=== PATIENT | female | born 1950 ===

== ENCOUNTER 2017-12-09 07:46 | Day surgery (SDC) | payer OTHER ==
[2017-12-09] MEDS ORDERED: Lactated Ringer's 500 ML IV ONE (08:55)
[2017-12-09] MEDS ORDERED: Propofol 10 mg/ml Inj (20 ML) ONE (10:00)
[2017-12-09 10:29] VITALS: TEMP 97
[2017-12-09 10:35] VITALS: BP 115/68; PULSE 79; RESP 20; O2SAT 99
== END 2017-12-09 11:33 | disposition home or self-care (01) ==
LOC: H.ENDO 07:46
PROVIDERS: ATTEND Internal Medicine Gastroenterology
DX: Z86.010 Personal history of colon polyps (principal); E78.5 Hyperlipidemia, unspecified; I10 Essential (primary) hypertension; K64.8 Other hemorrhoids; K57.30 Diverticulosis of large intestine without perforation or abscess without bleeding
CPT/HCPCS: G0105; J2001; J2704; J7120

== ENCOUNTER 2018-03-01 10:17 | Emergency (ER) | payer OTHER ==
[2018-03-01 10:33] VITALS: BMI 27.2
[2018-03-01] MEDS ORDERED: Dexamethasone 10 MG in Sodium Chloride 0.9% 50 ML IV ONE (11:06)
[2018-03-01] MEDS ORDERED: Morphine 4 MG/ML VIAL IVP ONE (11:06)
[2018-03-01] MEDS ORDERED: Morphine 4 MG/ML VIAL ONE (11:23)
[2018-03-01 11:27] LABS: BASO % 0.6 % (0.0-2.0); EOS # 0.1 K/uL (0.0-0.7); EOS % 1.7 % (0.0-4.0); HEMOGLOBIN 15.2 g/dL (12.0-18.0); LYMPH # 1.3 K/uL (1.0-4.3); LYMPH % 27.1 % (20.0-40.0); MEAN CELL VOLUME 94.1 fl (80.0-94.0); MEAN CORPUSCULAR HEMOGLOBIN 32.8 pg (27.0-31.0); MEAN CORPUSCULAR HGB CONC 34.8 g/dL (33.0-37.0); MEAN PLATELET VOLUME 7.7 fl (7.2-11.7); MONO # 0.5 K/uL (0.0-0.8); MONO % 9.9 % (0.0-10.0); NEUT # 2.8 K/uL (1.8-7.0); NEUT % 60.7 % (50.0-75.0); NRBC % 0.1 % (0.0-0.0); RBC 4.63 Mil/uL (4.40-5.90); RED CELL DISTRIBUTION WIDTH 13.6 % (11.5-14.5); WHITE BLOOD COUNT 4.6 K/uL (4.8-10.8)
[2018-03-01 11:41] LABS: BLOOD UREA NITROGEN 13 mg/dl (9-20); CALCIUM 9.7 mg/dL (8.4-10.2); GFR NON-AFRICAN AMERICAN > 60
--- NOTE | 2018-03-01 12:07 | ED PDOC ---
HPI: Back Time Seen by Provider: 03/01/18 10:44 Chief Complaint (Nursing): Back Pain Chief Complaint (Provider): Back Pain History Per: Patient History/Exam Limitations: no limitations Onset/Duration Of Symptoms: Days Current Symptoms Are (Timing): Still Present Quality Of Discomfort: "Pain" Previous Symptoms: Back Pain, Chronic Pain, Prior Surgery Additional Complaint(s): 67 y/o male with a PMHx of chronic back pain, arthritis and HTN presents to the ED complaining of constant left-sided lower back pain that radiates down to the left leg, onset three days ago. Patient reports pain is gradually getting worse and worsens with movement, bending and walking. Patient states severe pain is making it very difficult for him to walk. Patient reports of taking Advil with mild relief over the past three days. In addition, patient reports of similar pain for many years in the past due to injuries to his back. Patient reports of having a lumbar back surgery performed by Dr. Saleh (from [facility]) in the past for his injuries and lumbar back pain. However, patient states he has not seen or been in contact with Dr. Saleh for many years. Additionally, patient reports of numbness to the left leg and intermittent urinary incontinence ongoing for a very long time. Denies recent injury, fever, weakness, pain management and other complaints at this time. PMD: [facility] Past Medical History Reviewed: Historical Data, Nursing Documentation, Vital Signs Vital Signs: Last Vital Signs Temp 98.8 F 03/01/18 10:43 Pulse 83 03/01/18 10:43 Resp 20 03/01/18 10:43 BP 137/84 03/01/18 10:43 Pulse Ox 97 03/01/18 10:43 - Medical History PMH: Arthritis, HTN, Hypercholesterolemia, Kidney Stones, Chronic Pain (back pain) Denies: Depression, Chronic Kidney Disease - Surgical History Surgical History: Back Surgery, Endoscopy Denies: Pacemaker Other surgeries: Knee Surgery - Family History Family History: States: Unknown Family Hx - Home Medications Home Medications: Ambulatory Orders Medication Instructions Recorded Telmisartan [Micardis] 1 tab PO DAILY 05/20/16 oxyCODONE/Acetaminophen [Percocet 1 tab PO Q6H PRN #5 tab 04/07/17 5/325 mg Tab] Amlodipine/Valsartan/Hcthiazid 1 each PO DAILY 12/09/17 [Exforge Hct 5-160-12.5 mg Tab] Methylprednisolone [Medrol Dose 4 mg PO ASDIR #21 mg 03/01/18 Pack (21 tabs)] traMADol [Ultram] 50 mg PO TID PRN #15 tab 03/01/18 - Allergies Allergies/Adverse Reactions: Allergies Allergy/AdvReac Type Severity Reaction Status Date / Time Penicillins Allergy RASH Verified 12/09/17 09:04 Review of Systems ROS Statement: Except As Marked, All Systems Reviewed And Found Negative Constitutional: Negative for: Fever Genitourinary Male: Positive for: Incontinence Musculoskeletal: Positive for: Back Pain (left sided), Leg Pain (left leg) Neurological: Positive for: Numbness (left leg). Negative for: Weakness Physical Exam - Reviewed Nursing Documentation Reviewed: Yes Vital Signs Reviewed: Yes - Physical Exam Appears: Positive for: Non-toxic, No Acute Distress Head Exam: Positive for: ATRAUMATIC, NORMOCEPHALIC Skin: Positive for: Normal Color, Warm, Dry Eye Exam: Positive for: Normal appearance, EOMI, PERRL Neck: Positive for: Normal, Painless ROM Cardiovascular/Chest: Positive for: Regular Rate, Rhythm. Negative for: Murmur Respiratory: Positive for: Normal Breath Sounds. Negative for: Respiratory Distress Gastrointestinal/Abdominal: Positive for: Normal Exam, Soft. Negative for: Tenderness Back: Positive for: Normal Inspection, Other (Left paraspinal tenderness with a positive straight leg raise) Extremity: Positive for: Normal ROM. Negative for: Deformity Neurologic/Psych: Positive for: Alert, Oriented, Gait (Steady but antalgic). Negative for: Motor/Sensory Deficits - Laboratory Results Result Diagrams: 03/01/18 11:22 03/01/18 11:22 - ECG O2 Sat by Pulse Oximetry: 97 (RA) Pulse Ox Interpretation: Normal - Progress Re-evaluation Time: 15:00 Condition: Re-examined, Improved Medical Decision Making Medical Decision Making: Time: 1115 Impression: Acute on chronic low back pain Differentials include but not limited to discornation, spinal stenosis with lumbar radiculopathy. Plan: -- BMP -- ED Urine Dipstick -- CBC with differentials -- Erythrocyte Sedimentation Rate -- Lumbar Spine MRI w/o Contrast -- Decadron Inj 10 mg IV -- Morphine 4 mg IVP -- MRI ordered considering patient's neurological deficits/complaints that the patient described. Time: 1342 MRI RESULTS FINDINGS: There is mild degenerative retrolisthesis of L4 on L5. There is straightening of the lumbar spine with loss of normal lumbar lordosis. Vertebral height is normal. Bone marrow signal is normal. There is no acute fracture. The conus medullaris terminates at a normal level and the nerve roots of cauda equina are normal. The paraspinous soft tissues are normal. Imaged portion of the retroperitoneum is within normal limits. T12-L1: Small left paracentral disc protrusion without spinal canal stenosis or neural foraminal narrowing. L1-2: Diffuse posterior disc bulge without spinal canal stenosis or neural foraminal narrowing. Also noted is a superimposed left foraminal and far lateral disc protrusions which abut the exiting left L1 nerve root. Mild bilateral facet arthropathy. L2-3: No disc herniation, spinal canal stenosis or neural foraminal narrowing. L3-4: Status post left laminectomy. Diffuse posterior disc bulge without central spinal canal stenosis. Moderate bilateral facet arthropathy contribute to moderate neural foraminal narrowing. L4-5: Central annular tear and right posterolateral and foraminal disc extrusion without central spinal canal stenosis. Mild bilateral facet arthropathy contribute to moderate right and mild left neural foraminal narrowing. L5-S1: Diffuse posterior disc bulge with superimposed central annular tear and broad- based central disc protrusion and mild spinal canal stenosis. No neural foraminal narrowing. OTHER FINDINGS: None. IMPRESSION: Multilevel degenerative disc disease, worse at L4-5 with central annular tear and right posterolateral and foraminal disc extrusion without central spinal canal stenosis. Also noted is moderate right and mild left neural foraminal narrowing. At L1-2 diffuse posterior disc bulge and superimposed left foraminal and far lateral disc protrusion abut the exiting left L1 nerve root. Additional comments as described above. Scribe Attestation: Documented by Sheryl English acting as a scribe for Dr. Jessi Salgado MD. Provider Scribe Attestation: All medical record entries made by the Scribe were at my direction and personally dictated by me. I have reviewed the chart and agree that the record accurately reflects my personal performance of the history, physical exam, medical decision making, and the department course for this patient. I have also personally directed, reviewed, and agree with the discharge instructions and disposition. Disposition - Clinical Impression Clinical Impression: Back pain, DJD (degenerative joint disease), lumbar, Bulging lumbar disc, Radicular pain of left lower extremity Doctor Will See Patient In The: Office Counseled Patient/Family Regarding: Studies Performed, Diagnosis, Need For Followup - Disposition Referrals: Devon Saleh MD [Staff Provider] - Disposition: Routine/Home Disposition Time: 15:00 Condition: GOOD Additional Instructions: DESHAWN BURT, thank you for letting us take care of you today. Your provider was Jessi Salgado MD and you were treated for BACK PAIN. The emergency medical care you received today was directed at your acute symptoms. If you were prescribed any medication, please fill it and take as directed. It may take several days for your symptoms to resolve. Return to the Emergency Department if your symptoms worsen, do not improve, or if you have any other problems. Please contact your doctor or call one of the physicians/clinics you have been referred to that are listed on the Patient Visit Information form that is included in your discharge packet. Bring any paperwork you were given at discharge with you along with any medications you are taking to your follow up visit. Our treatment cannot replace ongoing medical care by a primary care provider outside of the emergency department. Thank you for allowing the [facility] team to be part of your care today. If you had an X-Ray or CT scan: A Radiologist will review the ED reading if any change in treatment is needed we will contact you. If you had a blood, urine, or wound culture: It will take several days for the results, if any change in treatment is needed we will contact you. If you had an STI test: It will take 48 hours for the results. Please call after 1 week if you have not heard back. Prescriptions: Methylprednisolone [Medrol Dose Pack (21 tabs)] 4 mg PO ASDIR #21 mg traMADol [Ultram] 50 mg PO TID PRN #15 tab PRN Reason: Pain, Severe (8-10) Instructions: Herniated Disc, Radiculopathy (DC)
--- NOTE | 2018-03-01 13:44 | MRI ---
Date of service: 03/01/2018 PROCEDURE: MR LUMBAR SPINE WITHOUT CONTRAST HISTORY: back pain L leg paresthesia h/o back surgery COMPARISON: None available. TECHNIQUE: Multiecho multiplanar sequences were performed through the lumbar spine without the use of intravenous contrast. FINDINGS: There is mild degenerative retrolisthesis of L4 on L5. There is straightening of the lumbar spine with loss of normal lumbar lordosis. Vertebral height is normal. Bone marrow signal is normal. There is no acute fracture. The conus medullaris terminates at a normal level and the nerve roots of cauda equina are normal. The paraspinous soft tissues are normal. Imaged portion of the retroperitoneum is within normal limits. T12-L1: Small left paracentral disc protrusion without spinal canal stenosis or neural foraminal narrowing. L1-2: Diffuse posterior disc bulge without spinal canal stenosis or neural foraminal narrowing. Also noted is a superimposed left foraminal and far lateral disc protrusions which abut the exiting left L1 nerve root. Mild bilateral facet arthropathy. L2-3: No disc herniation, spinal canal stenosis or neural foraminal narrowing. L3-4: Status post left laminectomy. Diffuse posterior disc bulge without central spinal canal stenosis. Moderate bilateral facet arthropathy contribute to moderate neural foraminal narrowing. L4-5: Central annular tear and right posterolateral and foraminal disc extrusion without central spinal canal stenosis. Mild bilateral facet arthropathy contribute to moderate right and mild left neural foraminal narrowing. L5-S1: Diffuse posterior disc bulge with superimposed central annular tear and broad-based central disc protrusion and mild spinal canal stenosis. No neural foraminal narrowing. OTHER FINDINGS: None. IMPRESSION: Multilevel degenerative disc disease, worse at L4-5 with central annular tear and right posterolateral and foraminal disc extrusion without central spinal canal stenosis. Also noted is moderate right and mild left neural foraminal narrowing. At L1-2 diffuse posterior disc bulge and superimposed left foraminal and far lateral disc protrusion abut the exiting left L1 nerve root. Additional comments as described above.
[2018-03-01 15:36] VITALS: BP 130/70; PULSE 76; RESP 19; TEMP 97; O2SAT 98
== END 2018-03-01 16:00 | disposition home or self-care (01) ==
LOC: H.ER 10:17
DX: M54.5 Low back pain (principal); M47.9 Spondylosis, unspecified; M51.26 Other intervertebral disc displacement, lumbar region; G89.29 Other chronic pain; I10 Essential (primary) hypertension; M51.16 Intervertebral disc disorders with radiculopathy, lumbar region; Z87.442 Personal history of urinary calculi; Z88.0 Allergy status to penicillin; E78.00 Pure hypercholesterolemia, unspecified
CPT/HCPCS: 72148; 80048; 85025; 85651; 96374; 99282; J1100; J2270

== ENCOUNTER 2018-04-02 12:50 | Emergency (ER) | payer OTHER, MEDICARE ==
[2018-04-02 12:50] VITALS: BMI 27.2
--- NOTE | 2018-04-02 13:32 | ED PDOC ---
Lower Extremity Pain/Injury Time Seen by Provider: 04/02/18 13:07 Chief Complaint (Nursing): Back Pain Chief Complaint (Provider): Back Pain History Per: Patient History/Exam Limitations: no limitations Onset/Duration Of Symptoms: Days (x3) Current Symptoms Are (Timing): Still Present Additional Complaint(s): Chase Becerra is a 67 year old male with a past medical history of hypertension and chronic back pain who is presenting to the ED for evaluation of acute on chronic back pain radiating down the left leg, onset 3 days ago. Patient reports that he has had chronic back pain since his lumbar fusion surgery 12 years ago and states that he manages his pain with Tramadol. He adds that he took half a tablet of Tramadol this morning without any relief in pain. Patient reports that he was seen here three days ago for a near syncopal episode after taking Tramadol but was discharged after an unremarkable work up. Otherwise: (-) falls, (-) trauma, (-) fever, (-) saddle anesthesia, (-) chest pain, (-) shortness of breath, (-) nausea, (-) vomiting, (-) diarrhea (-) abdominal pain (-) urinary symptoms (-) weakness/numbness. PMD: [facility] Past Medical History Reviewed: Historical Data, Nursing Documentation, Vital Signs Vital Signs: Last Vital Signs Temp 97.9 F 04/02/18 12:58 Pulse 76 04/02/18 12:58 Resp 20 04/02/18 12:58 BP 160/87 H 04/02/18 12:58 Pulse Ox 100 04/02/18 12:58 - Medical History PMH: Arthritis, HTN, Hypercholesterolemia, Kidney Stones, Chronic Pain (back pain) - Surgical History Surgical History: Back Surgery (lumbar fusion), Endoscopy Other surgeries: right knee surgery - Family History Family History: States: Unknown Family Hx - Social History Current smoker - smoking cessation education provided: No Alcohol: Social Drugs: Denies - Home Medications Home Medications: Ambulatory Orders Medication Instructions Recorded Telmisartan [Micardis] 1 tab PO DAILY 05/20/16 oxyCODONE/Acetaminophen [Percocet 1 tab PO Q6H PRN #5 tab 04/07/17 5/325 mg Tab] Amlodipine/Valsartan/Hcthiazid 1 each PO DAILY 12/09/17 [Exforge Hct 5-160-12.5 mg Tab] Methylprednisolone [Medrol Dose 4 mg PO ASDIR #21 mg 03/01/18 Pack (21 tabs)] traMADol [Ultram] 50 mg PO TID PRN #15 tab 03/01/18 Acetaminophen [Acetaminophen 8 650 mg PO Q8 PRN #21 tablet.er 04/02/18 Hour] Meloxicam [Mobic] 15 mg PO DAILY PRN #14 tab 04/02/18 - Allergies Allergies/Adverse Reactions: Allergies Allergy/AdvReac Type Severity Reaction Status Date / Time Penicillins Allergy RASH Verified 04/02/18 12:57 Review of Systems ROS Statement: Except As Marked, All Systems Reviewed And Found Negative Constitutional: Negative for: Fever Cardiovascular: Negative for: Chest Pain Respiratory: Negative for: Shortness of Breath Gastrointestinal: Negative for: Nausea, Vomiting, Abdominal Pain, Diarrhea Musculoskeletal: Positive for: Back Pain, Leg Pain Physical Exam - Reviewed Nursing Documentation Reviewed: Yes Vital Signs Reviewed: Yes - Physical Exam Comments: GENERAL APPEARANCE: Patient is awake, alert, oriented x 3, in no acute distress ; appears uncomfortable uncomfortable. Cane at bedside. SKIN: Warm, dry; (-) cyanosis. EYES: (-) conjunctival pallor. ENMT: Mucous membranes moist. Airway patent, (-) stridor. NECK: Supple, FROM (-) tenderness, (-) stiffness, (-) lymphadenopathy. CHEST AND RESPIRATORY: (-) rales, (-) rhonchi, (-) wheezes; breath sounds equal bilaterally. Respirations even and nonlabored. HEART AND CARDIOVASCULAR: (-) irregularity ABDOMEN AND GI: Soft; (-) tenderness (-) guarding (-) distention; (-) palpable mass (-) CVA tenderness. BACK: (+) left paralumbar and left sciatic notch tenderness. Straight leg raising (-) right, (+) left side at 10 degrees. (+) healed 4 cm vertically oriented surgical incision to midline lumbar spine, with mild midline tenderness. EXTREMITIES: (-) deformity. Distal pulses good bilaterally. NEURO AND PSYCH: Mental status as above. Intact sensation bilaterally; normal strength in extension of the knees, plantar and dorsiflexion of the toes. Speech: clear. (-) facial asymmetry (-) aphasia - ECG O2 Sat by Pulse Oximetry: 100 (RA) Pulse Ox Interpretation: Normal Medical Decision Making Medical Decision Making: Time: 13:10 Impression: acute on chronic back pain, probable sciatica Plan: --Toradol 30 mg IM --Valium 5 mg PO ( Not driving home) --Zofran 4 mg PO 1435 Patient reports persistent pain. 1 tab Percocet ordered. 1520 Patient sleeping comfortably in ED stretcher. No distress noted. 1540 Patient reports minimal improvement of symptoms. Lumbar CT ordered. [address] 1720 Patient resting comfortably in ED stretcher. Pending CT read. 1735 EXAM: CT Lumbar Spine Without Intravenous Contrast EXAM DATE/TIME: 04/02/2018 3:41 PM CLINICAL HISTORY: 67 years old, male; Pain; Low back pain; Prior surgery; Surgery date: 6+ months ; Surgery type: Lumbar fusion 12 yrs ago; Patient HX: Chronic back pain; Additional info: Intractable pain. Pain radiating down left leg x 3 days TECHNIQUE: Axial computed tomography images of the lumbar spine without intravenous contrast. All CT scans at this facility use at least one of these dose optimization techniques: automated exposure control; mA and/or kV adjustment per patient size (includes targeted exams where dose is matched to clinical indication); or iterative reconstruction. Coronal and sagittal reformatted images were created and reviewed. COMPARISON: MR SPINAL CANAL LUMBAR W/O CONT 03/01/2018 12:34 PM FINDINGS: Vertebrae: There is no evidence of acute fracture. Discs/spinal canal/neural foramina: There is mild central spinal stenosis, secondary to disc buldge/osteophytic spurring. Mild to moderate bilateral foraminal stenosis at L3 -4 and L5 levels. No focal disc herniation is seen. Soft tissues: Unremarkable. IMPRESSION: No acute findings. Thank you for allowing us to participate in the care of your patient. Repeat BP: 127/63 Repeat HR: 67 On re-evaluation, patient reports improvement of symptoms. On exam, patient remains AAOx3, in no acute distress. Lungs clear to auscultation, cardiac RRR, repeat neuro exam shows no focal findings. Gait steady in ED with cane. Vitals stable. Lab/Diagnostic results d/w the patient in great detail. Diagnosis of acute on chronic back pain, sciatica d/w the patient. Based on history, exam and diagnostic results, plan will be for outpatient follow up with PMD/ortho. Patient instructed to follow-up with pmd / referral provided / the clinic in 1- 2 days without fail. Advised to take medication as prescribed. Return to the emergency room at any time for any new or worsening symptoms. Patient states she fully agrees with and understands discharge instructions. States that she agrees with the plan and disposition. Verbalized and repeated discharge instructions and plan. I have given the patient opportunity to ask any additional questions. Scribe Attestation: Documented by Krista Matos, acting as a scribe for Yen Adame PA-C. Provider Scribe Attestation: All medical record entries made by the Scribe were at my direction and personally dictated by me. I have reviewed the chart and agree that the record accurately reflects my personal performance of the history, physical exam, medical decision making, and the department course for this patient. I have also personally directed, reviewed, and agree with the discharge instructions and disposition. Disposition - Clinical Impression Clinical Impression: Back pain, Sciatica, Chronic pain - Patient ED Disposition Is Patient to be Admitted: No Counseled Patient/Family Regarding: Studies Performed, Diagnosis, Need For Followup, Rx Given - Disposition Referrals: Stacia Jaime MD [Staff Provider] - Disposition: Routine/Home Disposition Time: 17:37 Condition: STABLE Additional Instructions: The emergency medical care you received today was directed at your acute symptoms. If you were prescribed any medication, please fill it and take as directed. It may take several days for your symptoms to resolve. Return to the Emergency Department if your symptoms worsen, do not improve, or if you have any other problems. Please contact your doctor in 2 days for re-evaluation and follow up / or call one of the physicians/clinics you have been referred to that are listed on the Patient Visit Information form that is included in your discharge packet. Bring any paperwork you were given at discharge with you along with any medications you are taking to your follow up visit. Our treatment cannot replace ongoing medical care by a primary care provider (PCP) outside of the emergency department. Prescriptions: Acetaminophen [Acetaminophen 8 Hour] 650 mg PO Q8 PRN #21 tablet.er PRN Reason: Pain, Moderate (4-7) Meloxicam [Mobic] 15 mg PO DAILY PRN #14 tab PRN Reason: Pain, Moderate (4-7) Instructions: Sciatica, Low Back Pain in Adults, Sciatica Exercises Forms: [facility] ([place]ian) Print Language: K[place] - POA Present On Arrival: None
[2018-04-02] MEDS ORDERED: Oxycodone/Acetaminophen 5/325 mg Tab PO ONE (14:37)
[2018-04-02] MEDS ORDERED: Oxycodone/Acetaminophen 5/325 mg Tab ONE (14:44)
[2018-04-02 18:09] VITALS: BP 127/63; PULSE 67; RESP 18; TEMP 98.1
--- NOTE | 2018-04-02 18:11 | CT ---
Date of service: 04/02/2018 PROCEDURE: CT Lumbar Spine without contrast HISTORY: intractable pain COMPARISON: None available. TECHNIQUE: Axial computed tomography images were obtained of the lumbar spine without the use of intravenous contrast. Coronal and sagittal reformatted images were created and reviewed. Radiation dose: Total exam DLP = mGy-cm. This CT exam was performed using one or more of the following dose reduction techniques: Automated exposure control, adjustment of the mA and/or kV according to patient size, and/or use of iterative reconstruction technique. FINDINGS: VERTEBRAE: Unremarkable. No fracture. Normal alignment. DISCS/SPINAL CANAL/NEURAL FORAMINA: Disc bulges at L3-4 and L5-S1 with thecal sac indentation and foraminal stenosis on the right at L3-4. Status post left hemilaminotomy at L3-4. PARASPINAL SOFT TISSUES: Unremarkable. OTHER FINDINGS: None. IMPRESSION: No acute fracture.
[2018-04-02 18:55] VITALS: O2SAT 100
== END 2018-04-02 18:15 | disposition home or self-care (01) ==
LOC: H.ER 12:50
DX: M54.32 Sciatica, left side (principal); G89.29 Other chronic pain; E78.00 Pure hypercholesterolemia, unspecified; I10 Essential (primary) hypertension; Z88.0 Allergy status to penicillin
CPT/HCPCS: 72131; 96372; 99284; J1885

== ENCOUNTER 2018-04-03 13:10 | Emergency (ER) | payer OTHER, MEDICARE ==
[2018-04-03 13:11] VITALS: BMI 27.2
[2018-04-03 13:39] VITALS: O2SAT 99
--- NOTE | 2018-04-03 13:50 | ED PDOC ---
HPI: Male Pain Time Seen by Provider: 04/03/18 13:48 Chief Complaint (Nursing): Male Genitourinary Chief Complaint (Provider): DYSURIA History Per: Patient (67 Y/O MALE HERE FOR EVALUATION OF DYSURIA AND LEFT TESTICULAR PAIN NOTED SINCE LAST NIGHT. HAS ALSO HAD ONGOING LOWER BACK PAIN ASSOCITED WITH MOVEMENT. SEEN IN ED AND GIVEN TRAMADOL. DENEIS ANY FEVERS/ CHILLS/HEMATURIA.) Past Medical History Reviewed: Historical Data, Nursing Documentation, Vital Signs Vital Signs: Last Vital Signs Temp 98.2 F 04/03/18 13:36 Pulse 88 04/03/18 13:36 Resp 18 04/03/18 13:36 BP 143/80 04/03/18 13:36 Pulse Ox 99 04/03/18 13:36 - Medical History PMH: Arthritis, HTN, Hypercholesterolemia, Kidney Stones, Chronic Pain (back pain) Denies: Depression, Chronic Kidney Disease - Surgical History Surgical History: Back Surgery (lumbar fusion), Endoscopy Denies: Pacemaker - Family History Family History: States: Unknown Family Hx - Home Medications Home Medications: Ambulatory Orders Medication Instructions Recorded Telmisartan [Micardis] 1 tab PO DAILY 05/20/16 oxyCODONE/Acetaminophen [Percocet 1 tab PO Q6H PRN #5 tab 04/07/17 5/325 mg Tab] Amlodipine/Valsartan/Hcthiazid 1 each PO DAILY 12/09/17 [Exforge Hct 5-160-12.5 mg Tab] Methylprednisolone [Medrol Dose 4 mg PO ASDIR #21 mg 03/01/18 Pack (21 tabs)] traMADol [Ultram] 50 mg PO TID PRN #15 tab 03/01/18 Acetaminophen [Acetaminophen 8 650 mg PO Q8 PRN #21 tablet.er 04/02/18 Hour] Meloxicam [Mobic] 15 mg PO DAILY PRN #14 tab 04/02/18 Naproxen 375 mg PO Q8 PRN #21 tablet 04/03/18 - Allergies Allergies/Adverse Reactions: Allergies Allergy/AdvReac Type Severity Reaction Status Date / Time Penicillins Allergy RASH Verified 04/02/18 12:57 Review of Systems ROS Statement: Except As Marked, All Systems Reviewed And Found Negative Physical Exam - Reviewed Nursing Documentation Reviewed: Yes Vital Signs Reviewed: Yes - Physical Exam Appears: Positive for: Well, Non-toxic, No Acute Distress Head Exam: Positive for: ATRAUMATIC, NORMAL INSPECTION, NORMOCEPHALIC Skin: Positive for: Normal Color, Warm, DRY Eye Exam: Positive for: EOMI, Normal appearance, PERRL ENT: Positive for: Normal ENT Inspection Neck: Positive for: Normal, Painless ROM Cardiovascular/Chest: Positive for: Regular Rate, Rhythm Respiratory: Positive for: CNT, Normal Breath Sounds Gastrointestinal/Abdominal: Positive for: Normal Exam, Soft Male Genital Exam: Positive for: scrotum tenderness (L) Back: Positive for: Normal Inspection Extremity: Positive for: Normal ROM Neurologic/Psych: Positive for: Alert, Oriented - Laboratory Results Result Diagrams: 04/03/18 14:00 04/03/18 14:00 - ECG O2 Sat by Pulse Oximetry: 99 - Progress ED Course And Treament: US SCROTAL: IMPRESSION: No evidence of testicular torsion. Small bilateral hydroceles. CT ABD/PELVIS: IMPRESSION: No obstructive uropathy or evidence of recently passed genitourinary calculus. No significant interval change. TORADOL 15 MG IV X 1 DOSE PERCOCET 5/325 MG X 1 DOSE Disposition - Clinical Impression Clinical Impression: Scrotal pain, Hydrocele - Patient ED Disposition Is Patient to be Admitted: No - Disposition Referrals: Tristen Kwan Jr., MD [Staff Provider] - Disposition: Routine/Home Disposition Time: 18:56 Condition: FAIR Prescriptions: Naproxen 375 mg PO Q8 PRN #21 tablet PRN Reason: Pain, Moderate (4-7) Instructions: Hydrocele/Varicocele (DC)
[2018-04-03 14:13] LABS: BASO # 0.1 K/uL (0.0-0.2); BASO % 0.6 % (0.0-2.0); EOS % 0.3 % (0.0-4.0); HEMOGLOBIN 15.6 g/dL (12.0-18.0); LYMPH # 1.4 K/uL (1.0-4.3); LYMPH % 17.5 % (20.0-40.0); MEAN CELL VOLUME 93.5 fl (80.0-94.0); MEAN CORPUSCULAR HEMOGLOBIN 32.6 pg (27.0-31.0); MEAN CORPUSCULAR HGB CONC 34.9 g/dL (33.0-37.0); MEAN PLATELET VOLUME 8.1 fl (7.2-11.7); MONO # 0.9 K/uL (0.0-0.8); MONO % 10.8 % (0.0-10.0); NEUT # 5.6 K/uL (1.8-7.0); NEUT % 70.8 % (50.0-75.0); NRBC % 0.1 % (0.0-0.0); RBC 4.79 Mil/uL (4.40-5.90); RED CELL DISTRIBUTION WIDTH 13.4 % (11.5-14.5); WHITE BLOOD COUNT 7.9 K/uL (4.8-10.8)
[2018-04-03 14:18] LABS: URINE BILIRUBIN NEGATIVE (NEGATIVE); URINE BLOOD NEGATIVE (NEGATIVE); URINE CLARITY CLEAR (Clear); URINE COLOR STRAW (YELLOW); URINE GLUCOSE (UA) NEG (Normal); URINE LEUKOCYTE ESTERASE NEG Leu/uL (Negative); URINE PROTEIN 30 mg/dL (NEGATIVE); URINE UROBILINOGEN 0.2-1.0 mg/dL (0.2-1.0)
[2018-04-03 14:41] LABS: BLOOD UREA NITROGEN 14 mg/dl (9-20); CALCIUM 9.4 mg/dL (8.4-10.2); GFR NON-AFRICAN AMERICAN > 60
--- NOTE | 2018-04-03 15:59 | CT ---
Date of service: 04/03/2018 PROCEDURE: CT Abdomen and Pelvis without intravenous contrast HISTORY: TESTICULAR PAIN R/O KIDNEY STONE COMPARISON: CT scan of the abdomen pelvis dated 10/12/2017. TECHNIQUE: Contiguous images were obtained from the domes of the diaphragms to the upper thighs without the administration of intravenous contrast. Oral contrast was not administered. Radiation dose: Total exam DLP = 790.8 mGy-cm. This CT exam was performed using one or more of the following dose reduction techniques: Automated exposure control, adjustment of the mA and/or kV according to patient size, and/or use of iterative reconstruction technique. FINDINGS: LOWER THORAX: Unremarkable. LIVER: Diffuse hepatic steatosis. No gross lesion or ductal dilatation. GALLBLADDER AND BILE DUCTS: Unremarkable. PANCREAS: Unremarkable. No gross lesion or ductal dilatation. SPLEEN: Unremarkable. ADRENALS: Unremarkable. No mass. KIDNEYS AND URETERS: 1.6 cm right interpolar cyst. No hydronephrosis. No solid mass. VASCULATURE: Unremarkable. No aortic aneurysm. BOWEL: Colonic diverticulosis. No obstruction. No gross mural thickening. APPENDIX: Unremarkable. Normal appendix. PERITONEUM: Unremarkable. No free fluid. No free air. LYMPH NODES: Unremarkable. No enlarged lymph nodes. BLADDER: Unremarkable. REPRODUCTIVE: Prostatomegaly. BONES: No acute fracture. OTHER FINDINGS: None. IMPRESSION: No obstructive uropathy or evidence of recently passed genitourinary calculus. No significant interval change.
--- NOTE | 2018-04-03 16:51 | US ---
Date of service: 04/03/2018 HISTORY: RIGHT SCROTAL TENDERNESS TECHNIQUE: Realtime sonography through the scrotum with color and doppler flow. COMPARISON: None Available. FINDINGS: RIGHT TESTICLE: Measures 4.3 x 2.1 x 3.3 cm. Normal echotexture and flow. RIGHT EPIDIDYMIS: Epididymal head measures 0.9 x 0.6 x 0.6 cm. Grossly unremarkable appearance with normal flow. LEFT TESTICLE: Measures 4.1 x 2.4 x 3.0 cm. Normal echotexture and flow. LEFT EPIDIDYMIS: Epididymal head measures 1.2 x 0.5 x 0.7 cm. Grossly unremarkable appearance with normal flow. HYDROCELE: Small bilateral hydroceles. VARICOCELE: None. OTHER FINDINGS: None. IMPRESSION: No evidence of testicular torsion. Small bilateral hydroceles.
[2018-04-03] MEDS ORDERED: Oxycodone/Acetaminophen 5/325 mg Tab PO STA (18:52)
[2018-04-03 18:53] VITALS: BP 148/92; PULSE 82; RESP 16; TEMP 97.6
== END 2018-04-03 19:53 | disposition home or self-care (01) ==
LOC: H.ER 13:10
DX: N50.82 Scrotal pain (principal); N43.3 Hydrocele, unspecified; Z87.442 Personal history of urinary calculi; I10 Essential (primary) hypertension; G89.29 Other chronic pain; Z88.0 Allergy status to penicillin
CPT/HCPCS: 74176; 80048; 81003; 85025; 87086; 87491; 87591; 93975; 96374; 99283; J1885

== ENCOUNTER 2018-04-07 14:02 | Emergency (ER) | payer OTHER, MEDICARE ==
[2018-04-07 14:03] VITALS: BMI 27.2
[2018-04-07 14:14] VITALS: O2SAT 100
--- NOTE | 2018-04-07 14:37 | ED PDOC ---
HPI: Male Pain Time Seen by Provider: 04/07/18 14:22 Chief Complaint (Nursing): Abdominal Pain Chief Complaint (Provider): Inguinal pain History Per: Patient History/Exam Limitations: no limitations Onset/Duration Of Symptoms: Days (x 2 weeks) Current Symptoms Are (Timing): Still Present Quality Of Discomfort: "Pain" Additional Complaint(s): 67 year old male with a history of sciatica presents to the ED with left inguinal pain after he was referred here by PMD. Patient has experienced this pain for 2 weeks. He was evaluated at this ED with a CT Abd & pelvis and a testicular US and both were negative. Dr. Michael, his PMD, is requesting a surgical evaluation for possible hernia. He has normal BMs. Patient denies vomiting and dysuria. PMD: Dr. Michael Past Medical History Reviewed: Historical Data, Nursing Documentation, Vital Signs Vital Signs: Last Vital Signs Temp 98.0 F 04/07/18 14:11 Pulse 92 H 04/07/18 14:11 Resp 17 04/07/18 14:11 BP 120/72 04/07/18 14:11 Pulse Ox 100 04/07/18 14:11 - Medical History PMH: Arthritis, HTN, Hypercholesterolemia, Kidney Stones, Chronic Pain (back pain) Denies: Depression, Chronic Kidney Disease - Surgical History Surgical History: Back Surgery (lumbar fusion), Endoscopy Denies: Pacemaker - Family History Family History: States: Unknown Family Hx - Home Medications Home Medications: Ambulatory Orders Medication Instructions Recorded Telmisartan [Micardis] 1 tab PO DAILY 05/20/16 oxyCODONE/Acetaminophen [Percocet 1 tab PO Q6H PRN #5 tab 04/07/17 5/325 mg Tab] Amlodipine/Valsartan/Hcthiazid 1 each PO DAILY 12/09/17 [Exforge Hct 5-160-12.5 mg Tab] Methylprednisolone [Medrol Dose 4 mg PO ASDIR #21 mg 03/01/18 Pack (21 tabs)] traMADol [Ultram] 50 mg PO TID PRN #15 tab 03/01/18 Acetaminophen [Acetaminophen 8 650 mg PO Q8 PRN #21 tablet.er 04/02/18 Hour] Meloxicam [Mobic] 15 mg PO DAILY PRN #14 tab 04/02/18 Naproxen 375 mg PO Q8 PRN #21 tablet 04/03/18 traMADol [Ultram] 50 mg PO Q8 #10 tab 04/07/18 - Allergies Allergies/Adverse Reactions: Allergies Allergy/AdvReac Type Severity Reaction Status Date / Time Penicillins Allergy RASH Verified 04/02/18 12:57 Review of Systems ROS Statement: Except As Marked, All Systems Reviewed And Found Negative Genitourinary Male: Positive for: Other (left inguinal pain) Physical Exam - Reviewed Nursing Documentation Reviewed: Yes Vital Signs Reviewed: Yes - Physical Exam Appears: Positive for: Non-toxic, No Acute Distress Head Exam: Positive for: ATRAUMATIC, NORMAL INSPECTION, NORMOCEPHALIC Skin: Positive for: Normal Color, Warm, Dry Eye Exam: Positive for: EOMI, Normal appearance, PERRL Neck: Positive for: Normal, Painless ROM, Supple Cardiovascular/Chest: Positive for: Regular Rate, Rhythm. Negative for: Murmur Respiratory: Positive for: Normal Breath Sounds. Negative for: Respiratory Distress Gastrointestinal/Abdominal: Positive for: Normal Exam, Soft. Negative for: Tenderness Male Genital Exam: Positive for: normal genitalia, no hernia (no inguinal hernia palpated). Negative for: hernia mass, inguinal tenderness, testicular tenderness (R), testicular tenderness (L) Extremity: Positive for: Normal ROM. Negative for: Deformity Neurologic/Psych: Positive for: Alert, Oriented (x 3). Negative for: Motor/Sensory Deficits - ECG O2 Sat by Pulse Oximetry: 100 (RA) Pulse Ox Interpretation: Normal Medical Decision Making Medical Decision Makin:22 --Will obtain surgical evaluation. 14:35 --enrollment management vice president will see patient in the ED. Scribe Attestation: Documented by Noris Milian, acting as a scribe for Richard Bingham MD Provider Scribe Attestation: All medical record entries made by the Scribe were at my direction and personally dictated by me. I have reviewed the chart and agree that the record accurately reflects my personal performance of the history, physical exam, medical decision making, and the department course for this patient. I have also personally directed, reviewed, and agree with the discharge instructions and disposition. Disposition - Clinical Impression Clinical Impression: Inguinal strain - Patient ED Disposition Is Patient to be Admitted: No Counseled Patient/Family Regarding: Diagnosis, Need For Followup, Rx Given - Disposition Referrals: Luz Hidalgo MD [Staff Provider] - Disposition: Routine/Home Disposition Time: 16:06 Condition: FAIR Prescriptions: traMADol [Ultram] 50 mg PO Q8 #10 tab Instructions: Groin Strain Forms: [employer] (Kazakh)
--- NOTE | 2018-04-07 15:03 | CP.PCM.CON ---
<Oscar Bingham - Last Filed: 04/07/18 15:04> History of Present Illness - History of Present Illness History of Present Illness: General Surgery Consult for Dr. Hidalgo Reason for consult: Left groin pain 67M with PMH that includes HTN, BPH, bilateral hydroceles presents to [facility] for complaint of Left groin pain. Patient was seen and evaluated in the ED. Patient states that he was sent in today bu his Urologist to be evaluated for inguinal hernia. Patient was at [facility] ED on 04/[address] abd/pelvis and Testicular US were done at that time. Only significant finding was small bilater hydroceles. Ct scan was unremarkable with no evidence of inguinal hernia. Patient states that he has been experiencing this pain for about 2 weeks. He reports to never having this pain in the past. He rates pain as moderate. He describes it as constant and sharp located near base of penis where scrotum meets. Activity sometimes worsens pain but nothing completely alleviates it. Patient denies abdominal pain, nausea/vomting, diarrhea. he reports to passing flatus and having regular BMs. Denies fever/chills, chest pain, SOB, constipation, urinary symptoms. PMH: as above Meds: As per MAR ALL: PCN PSH: back surgery, right knee surgery, right eye surgery FH: non-contributory Social: Denies tobacco/illicit drug use, admits to 2-3 glasses of wine per day Review of Systems - Review of Systems All systems: reviewed and no additional remarkable complaints except (as per HPI) Past Patient History - Infectious Disease Hx of Infectious Diseases: None - Past Medical History & Family History Past Medical History?: Yes - Past Social History Smoking Status: Never Smoked - CARDIAC Hx Hypercholesterolemia: Yes Hx Hypertension: Yes Hx Pacemaker: No - PULMONARY Hx Respiratory Disorders: No - HEENT Hx HEENT Problems: No - RENAL Hx Chronic Kidney Disease: No Hx Kidney Stones: Yes - ENDOCRINE/METABOLIC Hx Endocrine Disorders: No - HEMATOLOGICAL/ONCOLOGICAL Hx Blood Disorders: No - INTEGUMENTARY Hx Dermatological Problems: No - MUSCULOSKELETAL/RHEUMATOLOGICAL Hx Arthritis: Yes - GASTROINTESTINAL Hx Gastrointestinal Disorders: No - GENITOURINARY/GYNECOLOGICAL Hx Genitourinary Disorders: No - PSYCHIATRIC Hx Depression: No - SURGICAL HISTORY Hx Surgeries: Yes Hx Arthroscopy: Yes (RT KNEE) Other/Comment: NASAL AND LT EYE LID SURGERY - ANESTHESIA Hx Anesthesia: Yes Hx Anesthesia Reactions: No Hx Malignant Hyperthermia: No Meds Allergies/Adverse Reactions: Allergies Allergy/AdvReac Type Severity Reaction Status Date / Time Penicillins Allergy RASH Verified 04/02/18 12:57 Physical Exam - Constitutional Appears: Well, Non-toxic, No Acute Distress - Head Exam Head Exam: ATRAUMATIC, NORMOCEPHALIC - Eye Exam Eye Exam: EOMI, Normal appearance Pupil Exam: PERRL - ENT Exam ENT Exam: Mucous Membranes Moist - Neck Exam Neck exam: Positive for: Normal Inspection - Respiratory Exam Respiratory Exam: NORMAL BREATHING PATTERN - Cardiovascular Exam Cardiovascular Exam: REGULAR RHYTHM - GI/Abdominal Exam GI & Abdominal Exam: Normal Bowel Sounds, Soft. absent: Distended, Firm, Guarding, Hernia, Rebound, Rigid, Tenderness - Exam Exam: Testicular Tenderness (left testicle) Additional comments: TTP AT LEFT TESTICLE, LEFT SPERMATIC CORD TENDER SUPERIORLY - Extremities Exam Extremities exam: Positive for: normal capillary refill, pedal pulses present. Negative for: calf tenderness Additional comments: NO EVIDENCE OF INGUINAL HERNIA ON EITHER SIDE - Back Exam Back exam: absent: CVA tenderness (L), CVA tenderness (R) - Neurological Exam Neurological exam: Alert, CN II-XII Intact, Normal Gait, Oriented x3 - Psychiatric Exam Psychiatric exam: Normal Affect, Normal Mood - Skin Skin Exam: Dry, Intact, Normal Color, Warm Results - Vital Signs Recent Vital Signs: Last Vital Signs Temp 98.0 F 04/07/18 14:11 Pulse 92 H 04/07/18 14:11 Resp 17 04/07/18 14:11 BP 120/72 04/07/18 14:11 Pulse Ox 100 04/07/18 14:41 Assessment & Plan - Assessment and Plan (Free Text) Assessment: 67 M WITH LEFT GROIN PAIN Plan: -Patient may be discharged and follow up outpatient this week with Dr. Hidalgo at his office -May take OTC tylenol or ibuprofen for pain as needed -Outpatient work up for left groin pain -Discussed with Dr. Rocky Bingham PGY2 - Date & Time Date: 04/07/18 Time: 15:00 <Luz Hidalgo - Last Filed: 04/08/18 17:38> Results - Vital Signs Recent Vital Signs: Last Vital Signs Temp 98.7 F 04/07/18 16:40 Pulse 79 04/07/18 16:40 Resp 18 04/07/18 16:40 BP 143/81 04/07/18 16:40 Pulse Ox 100 04/07/18 16:40 Assessment & Plan - Assessment and Plan (Free Text) Plan: Discussed with resident over the phone. Can follow up electively to discuss treatment of hydrocele.
[2018-04-07 16:41] VITALS: BP 143/81; PULSE 79; RESP 18; TEMP 98.7
== END 2018-04-07 17:09 | disposition home or self-care (01) ==
LOC: H.ER 14:02
DX: R10.30 Lower abdominal pain, unspecified (principal); N43.3 Hydrocele, unspecified

== ENCOUNTER 2018-06-01 00:13 | Emergency (ER) | payer OTHER ==
[2018-06-01 00:13] VITALS: BMI 26.7
[2018-06-01 00:31] VITALS: BP 148/85; PULSE 89; RESP 16; TEMP 97.5; O2SAT 95
[2018-06-01] MEDS ORDERED: Tdap Vaccine 0.5 ml Vial (10-64 yrs) IM ONE ×2 (01:10→01:31)
--- NOTE | 2018-06-01 01:12 | ED PDOC ---
HPI: Wound Care - HPI Time Seen by Provider: 06/01/18 00:39 Chief Complaint (Nursing): Abnormal Skin Integrity Chief Complaint (Provider): right ear laceration History Per: Patient, Family History Of Present Illness: 67 y/o male presents for evaluation of laceration to right ear sustained prior to arrival. Patient states he was sleeping and rolled over and landed on corner of dresser draw that was open. Patient also reports injury to right axilla. Denies head injury, LOC, dizziness, extremity numbness/weakness, hearing changes, ear discharge. Last Tetanus unknown Past Medical History Reviewed: Historical Data, Nursing Documentation, Vital Signs Vital Signs: Last Vital Signs Temp 97.5 F L 06/01/18 00:29 Pulse 89 06/01/18 00:29 Resp 16 06/01/18 00:29 BP 148/85 06/01/18 00:29 Pulse Ox 95 06/01/18 00:29 - Medical History PMH: Arthritis (spine), HTN, Hypercholesterolemia, Kidney Stones, Chronic Pain (back pain) Denies: Depression, Chronic Kidney Disease - Surgical History Surgical History: Back Surgery (lumbar fusion), Endoscopy Denies: Pacemaker - Family History Family History: States: Unknown Family Hx - Home Medications Home Medications: Ambulatory Orders Medication Instructions Recorded Telmisartan [Micardis] 1 tab PO DAILY 05/20/16 oxyCODONE/Acetaminophen [Percocet 1 tab PO Q6H PRN #5 tab 04/07/17 5/325 mg Tab] Amlodipine/Valsartan/Hcthiazid 1 each PO DAILY 12/09/17 [Exforge Hct 5-160-12.5 mg Tab] Meloxicam [Mobic] 15 mg PO DAILY PRN #14 tab 04/02/18 Naproxen 375 mg PO Q8 PRN #21 tablet 04/03/18 traMADol [Ultram] 50 mg PO Q8 #10 tab 04/07/18 Clindamycin [Cleocin] 300 mg PO TID #20 cap 06/01/18 - Allergies Allergies/Adverse Reactions: Allergies Allergy/AdvReac Type Severity Reaction Status Date / Time Penicillins Allergy RASH Verified 04/02/18 12:57 Review of Systems ROS Statement: Except As Marked, All Systems Reviewed And Found Negative ENT: Positive for: Ear Pain Physical Exam - Reviewed Nursing Documentation Reviewed: Yes Vital Signs Reviewed: Yes - Physical Exam Appears: Positive for: Well, Non-toxic, No Acute Distress Head Exam: Positive for: ATRAUMATIC, NORMAL INSPECTION, NORMOCEPHALIC Skin: Positive for: Normal Color, Rash (0.5cm superficial laceration to right ax illa; no active bleeding, FB, or surrounding tenderness noted) Eye Exam: Positive for: Normal appearance ENT: Positive for: TM Is/Are (clear bilaterally), Other (3cm laceration right antihelix through cartilage extending to inferior helix. Not through and through. No surrounding facial or scalp tenderness noted) Cardiovascular/Chest: Positive for: Regular Rate, Rhythm Respiratory: Positive for: Normal Breath Sounds Gastrointestinal/Abdominal: Positive for: Normal Exam Back: Positive for: Normal Inspection Extremity: Positive for: Normal ROM Neurologic/Psych: Positive for: Alert, Oriented (x3) - ECG O2 Sat by Pulse Oximetry: 95 - Progress ED Course And Treament: -Adacel IM -wound care Patient educated on wound care, advised suture removal 8-10 days Rx clindamycin provided (dose given in ED) Return precautions given Procedure: Wound Repair - Indications Indication(s):: Laceration - Location Location:: Right (ear) Shape:: Curvilinear, Wedge Dimensions Length cm: 3cm Dimensions width cm: 0.5cm Depth:: Epidermis - Anesthetic Technique Anesthetic Technique: Topical Local/Regional Anesthetic:: Lidocaine 1% - Debris Debris:: None - Irrigated Irrigated with ml of normal saline: 250mL - Complexity Complexity:: Simple (one layer) - Wound repair method Sutures:: # (10), Size (6'0), Type (monofilament), Technique (interrupted) [place]:: Tissue glue (right axilla laceration), Steri-strips - Muscle repiar layer closed with Muscle repair layer closed with:: Abx ointment applied, Dressing applied - Patient tolerated procedure Patient Tolerated Procedure:: Well Disposition - Clinical Impression Clinical Impression: Laceration of right ear, external, Laceration of axilla, right - Patient ED Disposition Is Patient to be Admitted: No Counseled Patient/Family Regarding: Diagnosis, Need For Followup, Rx Given - Disposition Disposition: Routine/Home Disposition Time: 03:23 Condition: IMPROVED Additional Instructions: Suture removal in 7-10 days Apply neosporin daily Take medication as directed Return to ED for worsening/concerning symptoms Prescriptions: Clindamycin [Cleocin] 300 mg PO TID #20 cap Instructions: Laceration Repair Forms: [employer] (Jordanian) Print Language: [place]ILI
[2018-06-01] MEDS ORDERED: Lidocaine 1% Inj (20ml) IJ ONE (01:25)
[2018-06-01] MEDS ORDERED: Lidocaine 1% Inj (20ml) ONE (01:31)
== END 2018-06-01 04:07 | disposition home or self-care (01) ==
LOC: H.ER 00:13
DX: S01.311A Laceration without foreign body of right ear, initial encounter (principal); S41.111A Laceration without foreign body of right upper arm, initial encounter; W06.XXXA Fall from bed, initial encounter; G89.29 Other chronic pain; I10 Essential (primary) hypertension; Z87.442 Personal history of urinary calculi; Z88.0 Allergy status to penicillin; Z23 Encounter for immunization

== ENCOUNTER 2018-06-07 09:02 | Day surgery (SDC) | payer OTHER ==
[2018-05-25 10:32] VITALS: BMI 26.7
[2018-06-07] MEDS ORDERED: Lactated Ringer's 1,000 ML IV ONE (10:10)
[2018-06-07] MEDS ORDERED: Iohexol 300 10 ML ONE (10:21)
[2018-06-07] MEDS ORDERED: Bupivacaine HCl 0.25% PF (30 ml) Inj ONE (10:21)
[2018-06-07] MEDS ORDERED: MethylPREDNISolone Depo 40 mg/ml Inj ONE (10:21)
[2018-06-07] MEDS ORDERED: Lidocaine 1% Inj (20ml) ONE (10:22)
[2018-06-07] MEDS ORDERED: Bupivacaine HCl 0.5% PF (30 ml) Inj ONE (10:22)
[2018-06-07 10:27] VITALS: RESP 18
[2018-06-07] MEDS ORDERED: Midazolam 2 MG/2 ML VIAL ONE (10:43)
[2018-06-07] MEDS ORDERED: DiphenhydrAMINE 50 mg/ml Inj ONE (10:43)
[2018-06-07] MEDS ORDERED: Iohexol 300 10 ML IJ ONE (10:45)
[2018-06-07] MEDS ORDERED: Lidocaine 1% Inj (20ml) IJ ONE (10:45)
[2018-06-07] MEDS ORDERED: MethylPREDNISolone Depo 40 mg/ml Inj IM ONE (10:45)
[2018-06-07] MEDS ORDERED: Bupivacaine 0.5% Inj(30mL) IJ ONE (10:45)
[2018-06-07] MEDS ORDERED: DiphenhydrAMINE 50 mg/ml Inj IVP PRN (11:01)
[2018-06-07 12:17] VITALS: O2SAT 99
--- NOTE | 2018-06-07 12:58 | RAD ---
Date of service: 06/07/2018 PROCEDURE: Intraoperative Fluoroscopy. HISTORY: PAIN MANAGEMENT FINDINGS: Fluoroscopic assistance was provided for pain management. Please refer to the operative report from GARRETT Garcia. Total fluoroscopic time (continuous mode) utilized during the procedure 20.0 seconds. Total exam DLP: 4.99 (mGy).
[2018-06-07 13:15] VITALS: BP 128/76; PULSE 68; TEMP 98
--- NOTE | 2018-06-07 21:33 | OP ---
PROCEDURE DATE: 06/07/2018 PREOPERATIVE DIAGNOSES: Lumbar radiculopathy and sacroiliitis. POSTOPERATIVE DIAGNOSES: Lumbar radiculopathy and sacroiliitis. PROCEDURE: Left L1-L2 transforaminal epidural steroid injection and left sacroiliac joint steroid injection. ANESTHESIOLOGIST: Pedro Norwood MD SURGEON: Gio Roman MD TYPE OF ANESTHESIA: Monitored anesthesia care. COMPLICATIONS: None. SPECIMEN: None. DESCRIPTION OF PROCEDURE: After we had a discussion of the procedure with the patient including its risks, benefits, alternatives, outcome data, possibility of no effect or increased pain, the patient consented to the procedure. He denied any recent infection, bleeding tendencies or being on anticoagulants. A decision was then made to proceed to the OR. The patient was placed on the fluoroscopy table in prone position with two pillows underneath his abdomen. The back was prepped and draped in the usual sterile fashion and sterile technique was adhered to during the entire procedure. The L1 vertebral level was first identified in the anteroposterior view. Angulation towards the left at approximately 20 degrees was used to maximize the visualization of the left L1 pedicle. The skin overlying the 6 o'clock position of the pedicle was then infiltrated with 1% lidocaine using 25-gauge needle. Subsequently, a 22-gauge 3.5-inch spinal needle was incrementally advanced under fluoroscopic guidance until the tip of the needle walked into the intervertebral foramen. After satisfactory positioning of the needle, approximately 0.5 mL of Isovue contrast was injected showing appropriate epidural nerve root spread without any signs of CSF or intervenous involvement. At this point, approximately 3 mL of 0.25% Marcaine and Depo-Medrol mixture was injected. The needle was then removed. Then, the left sacroiliac joint was visualized in the anteroposterior view. The target was at the inferior pole of the posterior opening. The skin overlying this area was then infiltrated with 1% lidocaine using 25-gauge needle. Subsequently, a 22-gauge 3.5-inch spinal needle was incrementally advanced under fluoroscopic guidance until the tip of the needle walked into the joint capsule. After satisfactory positioning of the needle, approximately 0.5 mL of Isovue contrast was injected showing appropriate spread within the joint capsule. At this point, approximately 3 mL of 0.25% Marcaine and Depo-Medrol mixture was injected. The needle was then removed and the patient's back was cleaned and dry bandages were applied. The patient was then transferred to the recovery area in good condition without any signs of HEALTHCARE MANAGEMENT toxicity or any neurological deficit. He will be following up in the office in approximately 2 to 4 weeks. En-Elier Roman MD
== END 2018-06-07 13:30 | disposition home or self-care (01) ==
LOC: H.OPSURG 09:02
PROVIDERS: ATTEND Anesthesiology
DX: M54.16 Radiculopathy, lumbar region (principal); M19.90 Unspecified osteoarthritis, unspecified site; I10 Essential (primary) hypertension; M46.1 Sacroiliitis, not elsewhere classified
CPT/HCPCS: 64483; 64484; J1030; J1200; J2250; J3010; J7120; Q9967

== ENCOUNTER 2018-06-12 07:55 | Emergency (ER) | payer OTHER ==
[2018-06-12 07:55] VITALS: BMI 26.7
[2018-06-12 07:59] VITALS: BP 157/79; PULSE 93; RESP 18; TEMP 97.8; O2SAT 99
--- NOTE | 2018-06-12 09:13 | ED PDOC ---
HPI: Wound Care - HPI Time Seen by Provider: 06/12/18 08:15 Chief Complaint (Nursing): Suture/Staple Removal Chief Complaint (Provider): Suture Removal History Per: Patient Exam Limitations: no limitations Onset/Duration Of Symptoms: Days Current Symptoms Are (Timing): Better Additional Complaint(s): 67 year old male presents to the ER for suture removal from his right earlobe. Patient was in the ED on June 01 for ear injury and 10 stitches were placed on right earlobe. Denies any fever. PMD: no family provider Past Medical History Reviewed: Historical Data, Nursing Documentation, Vital Signs Vital Signs: Last Vital Signs Temp 97.8 F 06/12/18 07:58 Pulse 93 H 06/12/18 07:58 Resp 18 06/12/18 07:58 BP 157/79 H 06/12/18 07:58 Pulse Ox 99 06/12/18 07:58 - Medical History PMH: Arthritis (spine), HTN, Hypercholesterolemia, Kidney Stones, Chronic Pain (back pain) Denies: Depression, Chronic Kidney Disease - Surgical History Surgical History: Back Surgery (lumbar fusion), Endoscopy Denies: Pacemaker - Family History Family History: States: Unknown Family Hx - Social History Current smoker - smoking cessation education provided: No Alcohol: Other (drinks wine at night) Drugs: Denies - Home Medications Home Medications: Ambulatory Orders Medication Instructions Recorded Telmisartan [Micardis] 1 tab PO DAILY 05/20/16 Amlodipine/Valsartan/Hcthiazid 1 each PO DAILY 12/09/17 [Exforge Hct 5-160-12.5 mg Tab] Meloxicam [Mobic] 15 mg PO DAILY PRN #14 tab 04/02/18 RX: Clindamycin [Cleocin] 300 mg PO TID #20 cap 06/01/18 - Allergies Allergies/Adverse Reactions: Allergies Allergy/AdvReac Type Severity Reaction Status Date / Time Penicillins Allergy RASH Verified 06/07/18 10:16 Review of Systems ROS Statement: Except As Marked, All Systems Reviewed And Found Negative Constitutional: Negative for: Fever Skin: Positive for: Other (suture removal from his right ear) Physical Exam - Reviewed Nursing Documentation Reviewed: Yes Vital Signs Reviewed: Yes - Physical Exam Appears: Positive for: Well, Non-toxic, No Acute Distress Head Exam: Positive for: ATRAUMATIC, NORMAL INSPECTION, NORMOCEPHALIC Skin: Positive for: Normal Color, Warm, Dry. Negative for: Rash Eye Exam: Positive for: Normal appearance ENT: Positive for: Other (10 stitches (1 of the 10 was already loose and almost out) removed from right earlobe, area clean/dry intact. no cellulitis.) Neurologic/Psych: Positive for: Alert, Oriented (x3). Negative for: Motor/Sensory Deficits - ECG O2 Sat by Pulse Oximetry: 99 (RA) Pulse Ox Interpretation: Normal Medical Decision Making Medical Decision Making: Time: 846 The valentine were removed and area was covered with steri strips. Clinical Impression: Removal of suture pt instructed to follow up prn Upon provider reevaluation patient is feeling better, is medically stable, and requires no further treatment in the ED at this time. Patient will be discharged home. Counseling was provided and all questions were answered regarding diagnosis and need for follow up with clinic. There is agreement to discharge plan. Return if symptoms persist or worsen. ----- Scribe Attestation: Documented by Misa Kelly, acting as a scribe for Armin Alfaro MD. Provider Scribe Attestation: All medical record entries made by the Scribe were at my direction and personally dictated by me. I have reviewed the chart and agree that the record accurately reflects my personal performance of the history, physical exam, medical decision making, and the department course for this patient. I have also personally directed, reviewed, and agree with the discharge instructions and disposition. Disposition - Clinical Impression Clinical Impression: Removal of suture - Patient ED Disposition Is Patient to be Admitted: No - Disposition Disposition: Routine/Home Disposition Time: 09:00 Condition: IMPROVED Additional Instructions: follow up with the clinic as needed return to the ED with any worsening or concerning symptoms such as fever, pus, swelling Instructions: Stitches Removal Forms: [facility] (Ivorian)
== END 2018-06-12 09:07 | disposition home or self-care (01) ==
LOC: H.ER 07:55
DX: Z48.02 Encounter for removal of sutures (principal)

== ENCOUNTER 2018-07-12 11:15 | Emergency (ER) | payer OTHER ==
[2018-07-12 11:17] VITALS: BMI 26.7
[2018-07-12 12:15] VITALS: PULSE 92; RESP 18; TEMP 97.6
--- NOTE | 2018-07-12 14:00 | ED PDOC ---
HPI: General Adult Time Seen by Provider: 07/12/18 13:58 Chief Complaint (Nursing): Shortness Of Breath Chief Complaint (Provider): elevated blood pressure History Per: Patient (67 y/o male h/o hypertension and is here with chest pain 1 month ago left sided that occurred after lifting weights. States pain lasted for a week. Now currently pain-free. Would like medications for hypertension changed. Currently on losartin-hctz 160/12.5/ norvasc 5 mg. No prior h/o OR.) Past Medical History Reviewed: Historical Data, Nursing Documentation, Vital Signs Vital Signs: Last Vital Signs Temp 97.6 F 07/12/18 11:26 Pulse 92 H 07/12/18 11:26 Resp 18 07/12/18 11:26 BP 126/72 07/12/18 11:26 Pulse Ox 99 07/12/18 11:26 - Medical History PMH: Arthritis (spine), HTN, Hypercholesterolemia, Kidney Stones, Chronic Pain ( back pain) Denies: Depression, Chronic Kidney Disease - Surgical History Surgical History: Back Surgery (lumbar fusion), Endoscopy Denies: Pacemaker - Family History Family History: States: Unknown Family Hx - Home Medications Home Medications: Ambulatory Orders Medication Instructions Recorded Telmisartan [Micardis] 1 tab PO DAILY 05/20/16 Amlodipine/Valsartan/Hcthiazid 1 each PO DAILY 12/09/17 [Exforge Hct 5-160-12.5 mg Tab] Meloxicam [Mobic] 15 mg PO DAILY PRN #14 tab 04/02/18 Clindamycin [Cleocin] 300 mg PO TID #20 cap 06/01/18 - Allergies Allergies/Adverse Reactions: Allergies Allergy/AdvReac Type Severity Reaction Status Date / Time Penicillins Allergy RASH Verified 07/12/18 11:21 Review of Systems ROS Statement: Except As Marked, All Systems Reviewed And Found Negative Physical Exam - Reviewed Nursing Documentation Reviewed: Yes Vital Signs Reviewed: Yes - Physical Exam Appears: Positive for: Well, Non-toxic, No Acute Distress Head Exam: Positive for: ATRAUMATIC, NORMAL INSPECTION, NORMOCEPHALIC Skin: Positive for: Normal Color, Warm, DRY Eye Exam: Positive for: EOMI, Normal appearance, PERRL ENT: Positive for: Normal ENT Inspection Neck: Positive for: Normal, Painless ROM Cardiovascular/Chest: Positive for: Regular Rate, Rhythm Respiratory: Positive for: CNT, Normal Breath Sounds Gastrointestinal/Abdominal: Positive for: Normal Exam, Soft Back: Positive for: Normal Inspection Extremity: Positive for: Normal ROM Neurologic/Psych: Positive for: Alert, Oriented - Laboratory Results Result Diagrams: 07/12/18 16:20 - ECG O2 Sat by Pulse Oximetry: 99 - Progress ED Course And Treament: asa 324 mg x 1 dose cxr: IMPRESSION: No active disease. No interval pathology noted. Disposition - Clinical Impression Clinical Impression: Chest pain - Patient ED Disposition Is Patient to be Admitted: No - Disposition Referrals: Daniele Sánchez MD [Staff Provider] - Disposition: Routine/Home Disposition Time: 16:34 Condition: FAIR Instructions: Chest Pain Print Language: BELIZEAN
--- NOTE | 2018-07-12 14:41 | RAD ---
Date of service: 07/12/2018 HISTORY: routine COMPARISON: 07/27/2015 FINDINGS: LUNGS: No active pulmonary disease. PLEURA: No significant pleural effusion identified, no pneumothorax apparent. CARDIOVASCULAR: There is absence of aortic atherosclerotic calcification on x-ray. Probable top-normal heart size. No significant appearing pulmonary venous congestion. OSSEOUS STRUCTURES: Thoracic spondylosis. Left shoulder arthrosis. VISUALIZED UPPER ABDOMEN: Normal. OTHER FINDINGS: None. IMPRESSION: No active disease. No interval pathology noted.
[2018-07-12 16:24] LABS: BASO % 0.5 % (0.0-2.0); EOS # 0.1 K/uL (0.0-0.7); EOS % 1.2 % (0.0-4.0); HEMOGLOBIN 14.6 g/dL (12.0-18.0); LYMPH # 1.1 K/uL (1.0-4.3); LYMPH % 21.8 % (20.0-40.0); MEAN CELL VOLUME 94.5 fl (80.0-94.0); MEAN CORPUSCULAR HEMOGLOBIN 32.2 pg (27.0-31.0); MEAN PLATELET VOLUME 8.7 fl (7.2-11.7); MONO # 0.4 K/uL (0.0-0.8); MONO % 8.3 % (0.0-10.0); NEUT # 3.3 K/uL (1.8-7.0); NEUT % 68.2 % (50.0-75.0); NRBC % 1.1 % (0.0-0.0); RBC 4.55 Mil/uL (4.40-5.90); RED CELL DISTRIBUTION WIDTH 14.3 % (11.5-14.5); WHITE BLOOD COUNT 4.9 K/uL (4.8-10.8)
[2018-07-12 16:47] VITALS: BP 142/90; O2SAT 97
[2018-07-12 19:13] LABS: INR 0.9; PROTHROMBIN TIME 10.4 Seconds (9.8-13.1)
[2018-07-12 19:14] LABS: PARTIAL THROMBOPLASTIN TIME 23.2 Seconds (25.6-37.1)
[2018-07-12 19:44] LABS: BLOOD UREA NITROGEN 12 mg/dl (9-20)
[2018-07-12 19:45] LABS: ALB/GLOB RATIO 1.3 (1.0-2.1); ALBUMIN 4.4 g/dL (3.5-5.0); GFR NON-AFRICAN AMERICAN > 60
[2018-07-12 19:46] LABS: ALT/SGPT 64 U/L (21-72); AST/SGOT 62 U/L (17-59)
--- NOTE | 2018-07-13 09:21 | CARD ---
APPROVED REPORT Date of service: 07/12/2018 EKG Measurement Heart [id number] HI [id number] <Conclusion> Normal sinus rhythm Left axis deviation Abnormal ECG
== END 2018-07-12 16:40 | disposition home or self-care (01) ==
LOC: H.ER 11:15
DX: R07.89 Other chest pain (principal)

== ENCOUNTER 2018-08-15 06:03 | Day surgery (SDC) | payer OTHER ==
[2018-08-15 06:40] VITALS: BMI 26.4
[2018-08-15] MEDS ORDERED: Lactated Ringer's 1,000 ML IV ONE (06:47)
--- NOTE | 2018-08-15 07:38 | CP.SDSHP ---
Same Day Surgery H & P - History Proposed Procedure: Left knee injection Pre-Op Diagnosis: Left knee osteoarthritis - Allergies Allergies: Allergies Penicillins Allergy (Verified 08/15/18 06:19) RASH - Physical Exam Vital Signs: Vital Signs 08/15/18 08/15/18 06:27 06:35 Temperature 97.5 F L Pulse Rate 89 86 Respiratory 18 Rate Blood Pressure 140/77 O2 Sat by Pulse 97 Oximetry Neuro: WNL Heart: WNL Lungs: WNL - Impression Impression: Left knee osteoarthritis Pt. Evaluated Today:Candidate for Anesthesia & Procedure: Yes Short Stay Discharge - Short Stay Discharge Admitting Diagnosis/Reason for Visit: G57.10 Disposition: HOME/ ROUTINE
[2018-08-15] MEDS ORDERED: MethylPREDNISolone Depo 40 mg/ml Inj ONE (08:05)
[2018-08-15] MEDS ORDERED: Lidocaine 1% Inj (20ml) ONE (08:06)
[2018-08-15] MEDS ORDERED: DiphenhydrAMINE 50 mg/ml Inj ONE (08:08)
[2018-08-15] MEDS ORDERED: Midazolam 2 MG/2 ML VIAL ONE (08:08)
[2018-08-15] MEDS: Bupivacaine HCl 0.5% PF (30 ml) Inj ONE ×3 (08:18→08:24)
[2018-08-15] MEDS ORDERED: MethylPREDNISolone Depo 40 mg/ml Inj IM ONE (08:24)
[2018-08-15] MEDS ORDERED: HYDROmorphone 0.5 mg/0.5 ml ISec IVP PRN (08:32)
[2018-08-15] MEDS ORDERED: Lactated Ringer's 1,000 ML IV SCH (08:45)
[2018-08-15 12:00] VITALS: BP 133/78; PULSE 92; RESP 18; TEMP 97.4; O2SAT 99
--- NOTE | 2018-08-16 07:39 | OP ---
PROCEDURE DATE: 08/15/2018 PREOPERATIVE DIAGNOSES: Left knee osteoarthritis and also left paresthetica meralgia. PROCEDURES: Left lateral femoral cutaneous nerve block under ultrasound guidance and left intra-articular steroid injection into the knee. COMPLICATIONS: None. SPECIMEN: None. DESCRIPTION OF PROCEDURE: Procedure is as follows. After we had a discussion of the procedure with the patient including its risks, benefits, alternatives, outcome data, possibility of no effect or increased pain, the patient consented to the procedure. The patient denied any recent infection, bleeding tendencies, or being on anticoagulants. A decision was then made to proceed to the OR. Benadryl IV was given as a prophylaxis for the patient's supposed reaction to steroids. The patient was brought into the OR, placed on a fluoroscopy table in a supine position. The left knee and left groin were then prepped and draped in the usual steroid fashion. A sterile technique was adhered to during the entire procedure. The ultrasound was used to visualize the left femoral cutaneous nerve lateral to the left sartorius. The skin approximately 2 cm lateral to the probe was then infiltrated with 1% lidocaine using 25-gauge needle. Subsequently, a 22-gauge 3-1/2-inch spinal needle was then incrementally advanced under ultrasound guidance until tip of needle was adjacent to the lateral femoral cutaneous nerve. After appropriate placement of the needle, approximately 5 mL of 0.25% Marcaine and Depo-Medrol mixture was injected around the nerve. The needle was then removed. Then, the left knee was flexed at 90 degrees. The indentation medial to the patella was then marked. A 25-gauge 1-1/2-inch spinal needle was then inserted perpendicular to the skin until the knee was accessed. After negative aspiration, approximately 5 mL of 0.25% Marcaine and Depo-Medrol mixture was injected. The needle was then removed. The knee was then prepped. It was then cleaned and dry bandage was applied. The patient was then transferred to the recovery area in good condition without any signs of [employer] toxicity or any neurological deficits. He will be followed in the office in approximately two to four weeks. En-Elier Roman MD
== END 2018-08-15 12:10 | disposition home or self-care (01) ==
LOC: H.OPSURG 06:03
PROVIDERS: ATTEND Anesthesiology
DX: M17.12 Unilateral primary osteoarthritis, left knee (principal); I10 Essential (primary) hypertension; G57.12 Meralgia paresthetica, left lower limb
CPT/HCPCS: 20610; J1030; J1200; J2250; J3010; J7120